=== PATIENT | female | born 1955 | race Caucasian/White ===

== ENCOUNTER 2016-09-09 06:14 | Day surgery (SDC) | payer BC ==
--- NOTE | 2016-09-07 15:04 | PREOP HISTORY & PHYSICAL ---
DATE OF ADMISSION/SURGERY: 09/09/2016 HISTORY OF PRESENT ILLNESS: This patient is a 61-year-old female, 2, para 2, who recently mov ed to [facility]. She had a right ovarian cyst that has been followed for the past 5 years. Now it is cu rrently almost 10 cm. It is simple in nature. There are no internal echoes or solid areas. Considerin g the risk of torsion and rupture, it has been recommended to laparoscopically remove the cyst. PAST HISTORY: The patient had an appendectomy as a child, which was a negative appendectomy. She has had 2 sections. ALLERGIES: PENICILLINS CAUSE RASH. CURRENT MEDICATIONS: Just calcium and vitamins. SOCIAL HISTORY: The patient is a nonsmoker, quit more than 5 years ago. She was a smoker in the past. FAMILY HISTORY: Mother had cervical cancer diagnosed at age 29. Paternal aunt with ovarian cancer. Fa ther with heart disease. REVIEW OF SYSTEMS: On respiratory, the patient states she has mild emphysema and is currently on no m edications. PHYSICAL EXAMINATION VITAL SIGNS: Blood pressure 121/76. BMI 22.9. HEENT: Within normal limits. NECK: No thyromegaly. LUNGS: Clear. HEART: Regular rhythm without murmur or gallop. ABDOMEN: Normal without masses or organomegaly. EXTREMITIES: Normal. NEUROLOGICAL: Exam is grossly intact. PELVIC: Introitus and vagina is normal. There is a fullness in the right pelvis. Uterus is normal siz e. IMPRESSION: Persistent simple right ovarian cyst. PLAN: Laparoscopic cystectomy. The procedure has been explained to the patient. She understands there is a small possibility of needing to do an open procedure if it is unsafe to proceed laparoscopicall y. She understands that the risk of malignancy is very low; however, the final path report will be th e determining factor on the nature of the cyst. She agrees to proceed. JOB #: [id number] EXT JOB #:[id number]
[2016-09-09] MEDS ORDERED: LACTATED RINGERS 1,000 ML IV ONE (07:21)
[2016-09-09] MEDS ORDERED: NEOSTIGMINE 1 MG/1 ML 10 ML MDV IVP ONE (08:18)
[2016-09-09] MEDS ORDERED: LIDOCAINE-MPF 2% 5 ML VIAL IM ONE (08:18)
[2016-09-09] MEDS ORDERED: GLYCOPYRROLATE 1 MG/5 ML VIAL IVP ONE (08:18)
[2016-09-09] MEDS ORDERED: ACETAMINOPHEN 1,000 MG/100 ML VIAL IV ONE (08:18)
[2016-09-09] MEDS ORDERED: DEXAMETHASONE 4 MG/ML VIAL IVP ONE (08:18)
[2016-09-09] MEDS ORDERED: PROPOFOL 200 MG/20 ML VIAL IVP ONE (08:18)
[2016-09-09] MEDS ORDERED: KETOROLAC 30 MG/ML VIAL IVP ONE (08:18)
[2016-09-09] MEDS ORDERED: HYDROmorphone 2 MG/ML VIAL IVP ONE (08:18)
[2016-09-09] MEDS ORDERED: MIDAZOLAM 2 MG/2 ML VIAL IVP ONE (08:18)
[2016-09-09] MEDS ORDERED: ONDANSETRON 4 MG/2 ML VIAL IVP ONE (08:18)
[2016-09-09] MEDS ORDERED: ROCURONIUM 50 MG/5 ML VIAL IVP ONE (08:18)
[2016-09-09 10:40] VITALS: BP 116/65
--- NOTE | 2016-09-09 10:48 | OPERATIVE REPORT ---
DATE OF SURGERY: 09/09/2016 00:00:00 PREOPERATIVE DIAGNOSIS: Right ovarian cyst. POSTOPERATIVE DIAGNOSIS: Right ovarian cyst. NAME OF PROCEDURE: Laparoscopic right salpingo-oophorectomy. SURGEON: Ankit Edmonds M.D. ANESTHESIA: General endotracheal. PROCEDURE: Under general endotracheal anesthesia, the abdomen and vagina were prepped and draped in [facility] usual sterile fashion. The anterior lip of the cervix was grasped with a single-toothed tenaculum and the Dave cannula placed in the endocervical canal for uterine mobilization. Attention was then turned to the abdomen. A subumbilical incision was made and a Veress needle insert ed, 2 liters of carbon dioxide were insufflated into the abdominal cavity. A 10 mm laparoscopic troca r was then inserted and the laparoscope introduced. There were some omental adhesions on the right si de and to the anterior abdominal wall. A 5 mm trocar was placed approximately 8 cm lateral and 8 cm i nferior to the umbilical trocar. This was done under direct vision and was cephalad to the adherent o mentum. A 5 mm trocar was inserted similarly on the left. There was no peritoneal fluid to speak of, 60 mL of sterile saline was instilled into the pelvis and then aspirated and submitted as pelvic wash ings. The cyst was elevated out of the cul-de-sac, it was free of any adhesions. The right infundibulopelvi c ligament was then isolated and sealed with a LigaSure. The LigaSure was then marched down the perit oneum, serially sealing to just above the round ligament. The utero-ovarian ligament was then sealed and divided again with LigaSure. The pedicles were hemostatic. An EndoCatch was then placed through [facility] 10 mm port. The cyst was too large to be placed in the EndoCatch, so the cyst was aspirated, remov ing approximately 120 mL of straw colored clear fluid. The cyst was then placed in the EndoCatch and tube and ovary and cyst were brought out through the bilical site. Noted that the cyst was aspirated outside of the EndoCatch. There was not any large obv ious amount of cyst fluid that contaminated the pelvis. The pelvis, though, was irrigated then with s terile saline with the suction state inspector extensively. The instruments were removed. A single 0 Vicryl fascial suture was placed in the umbilical site and the skin of all 3 sites were then closed with pedro bcuticular 4-0 suture. The patient tolerated the procedure well. There were no complications. Blood l oss was estimated at 5 mL. JOB #: [id number] EXT JOB #:[id number]
== END 2016-09-09 06:15 | disposition home or self-care (01) ==
LOC: SDS 06:14
PROVIDERS: ATTEND Obstetrics & Gynecology
PROC: 0UT54ZZ Resection of Right Fallopian Tube, Percutaneous Endoscopic Approach (ICD-10-PCS; 2016-09-09)
PROC: 0UT04ZZ Resection of Right Ovary, Percutaneous Endoscopic Approach (ICD-10-PCS; principal; 2016-09-09 07:30)
DX: D27.0 Benign neoplasm of right ovary (principal); Z87.891 Personal history of nicotine dependence; J43.9 Emphysema, unspecified; Z88.0 Allergy status to penicillin; Z80.49 Family history of malignant neoplasm of other genital organs; Z80.41 Family history of malignant neoplasm of ovary; Z82.49 Family history of ischemic heart disease and other diseases of the circulatory system
CPT/HCPCS: 58661; 88108; 88305; J0131; J1170; J7120

== ENCOUNTER 2016-12-24 10:22 | Outpatient (CLI) | payer BC ==
--- NOTE | 2016-12-24 14:10 | Mammography Report ---
DIAGNOSTIC BILATERAL MAMMOGRAM: 12/24/2016 CLINICAL INDICATION: Lumpy thickening at base of right breast. TECHNIQUE: Bilateral CC and MLO views, right true lateral and laterally exaggerated craniocaudal vie ws. COMPARISON: 09/2014, 02/2013, 05/2011, 06/2010, 03/2009 from [place], [place]. FINDINGS: The breasts demonstrate scattered fibroglandular densities bilaterally. No suspicious mas ses, clustered microcalcifications, or regions of architectural distortion are identified. There has been no significant interval change. IMPRESSION: NEGATIVE EXAMINATION. RECOMMENDATION: Routine annual screening unless otherwise clinically indicated. BI-RADS category 1, negative. STANDARD QUALIFYING STATEMENTS 1. This examination was reviewed with the aid of Computer-Aided Detection (CAD). 2. A negative or benign imaging report should not delay biopsy if clinically suspicious findings are present. Consider surgical consultation if warranted. More than 5% of cancers are not identified by i maging. 3. Dense breasts may obscure an underlying neoplasm. JOB #: [id number] EXT JOB #:[id number]
== END 2016-12-24 10:23 | disposition home or self-care (01) ==
LOC: DI 10:22
PROVIDERS: ATTEND Nurse Practitioner Family
DX: N63.10 Unspecified lump in the right breast, unspecified quadrant (principal)
CPT/HCPCS: 77066

== ENCOUNTER 2023-06-28 08:00 | Outpatient (CLI) | payer BC, MEDICARE | END 2023-06-28 23:59 | disposition home or self-care (01) | LOC: LAB.N 08:00 | PROVIDERS: ATTEND Registered Nurse | DX: N30.90 Cystitis, unspecified without hematuria (principal); R30.0 Dysuria | CPT/HCPCS: 87077; 87086; 87181 ==

== ENCOUNTER 2023-10-04 08:00 | Outpatient (CLI) | payer BC, MEDICARE | END 2023-10-04 23:59 | disposition home or self-care (01) | LOC: LAB.N 08:00 | PROVIDERS: ATTEND Registered Nurse | DX: N30.90 Cystitis, unspecified without hematuria (principal) | CPT/HCPCS: 87086 ==